=== PATIENT | female | born 1955 | race African-American/Black ===

== ENCOUNTER 2017-02-19 07:35 | Day surgery (SDC) | payer OTHER ==
[2017-02-15 15:21] VITALS: BMI 27.3
[2017-02-19 08:18] LABS: BASOPHIL 0.4 % (0-2.0); EOSINOPHIL 1.7 % (0-4.5); MCH 26.3 pg (25.7-33.7); MCHC 32.5 g/dl (32.0-36.0); MEAN CELL VOLUME 80.8 fl (80-96); MEAN PLT VOLUME 8.2 fl (7.5-11.1); NEUTROPHILS 61.7 % (42.8-82.8); PLATELET COUNT 241 K/MM3 (134-434); RDW 12.6 % (11.6-15.6); WHITE BLOOD COUNT 9.5 K/mm3 (4.0-10.0)
[2017-02-19 08:34] LABS: INR 1.23 (0.82-1.09); PROTHROMBIN TIME (PATIENT) 13.5 SEC (9.98-11.88)
[2017-02-19 08:50] LABS: ALBUMIN 3.8 g/dl (3.4-5.0); ALK PHOS 83 U/L (45-117); ANION GAP 8 (8-16); BILIRUBIN,TOTAL 0.3 mg/dL (0.2-1.0); CALCIUM 9.4 mg/dL (8.5-10.1); CO2 27 mmol/L (21-32); CREATININE 1.3 mg/dL (0.55-1.02); GLUCOSE,RANDOM 86 mg/dL (74-106); SGOT/AST 14 U/L (15-37); SGPT/ALT 16 U/L (12-78); TOT PROT 7.5 g/dl (6.4-8.2)
[2017-02-19] MEDS ORDERED: PROPOFOL 20 ML ONE ×4 (10:19)
[2017-02-19] MEDS ORDERED: MIDAZOLAM HCL 2 MG/2 ML SINGLE DOSE VIAL ONE (10:19)
[2017-02-19] MEDS ORDERED: LEVOFLOXACIN 500 MG IVPB 100 ML IVPB ONE (10:21)
[2017-02-19] MEDS ORDERED: LIDOCAINE HCL/PF 2% SDV 5ML VIAL ONE (10:21)
[2017-02-19] MEDS ORDERED: oxyCODONE HCL 5 MG TABLET PO PRN (12:44)
[2017-02-19] MEDS ORDERED: ONDANSETRON 4 MG/2 ML VIAL IVPUSH PRN (12:44)
[2017-02-19] MEDS ORDERED: PROMETHAZINE HCL 25 MG/1 ML VIAL IVPUSH PRN (12:44)
[2017-02-19] MEDS ORDERED: LACTATED RINGERS SOLUTION 1,000 ML IV SCH (12:45)
[2017-02-19 17:01] VITALS: PULSE 60
[2017-02-19 17:14] VITALS: BP 110/76; TEMP 97.8
== END 2017-02-19 17:14 | disposition home or self-care (01) ==
LOC: JASUSAT 07:35
PROVIDERS: ATTEND Radiology Diagnostic Radiology
PROC: 0T503ZZ Destruction of Right Kidney, Percutaneous Approach (ICD-10-PCS; principal; 2017-02-19)
DX: C64.1 Malignant neoplasm of right kidney, except renal pelvis (principal)
CPT/HCPCS: 36415; 50593; 80053; 85025; 85610; C2618

== ENCOUNTER 2018-06-23 07:53 | Day surgery (SDC) | payer OTHER ==
[2018-06-20 19:01] VITALS: BMI 26.5
[2018-06-23 08:20] LABS: BASO % 0.4 % (0-2.0); EOS % 1.6 % (0-4.5); HEMATOCRIT 35.2 % (32.4-45.2); HEMOGLOBIN 11.9 GM/dL (10.7-15.3); LYMPH % 31.4 % (8-40); MCH 28.1 pg (25.7-33.7); MCHC 33.9 g/dl (32.0-36.0); MEAN PLT VOLUME 7.7 fl (7.5-11.1); MONO % 7.7 % (3.8-10.2); NEUT % 58.9 % (42.8-82.8); PLATELET COUNT 255 K/MM3 (134-434); RBC 4.23 M/mm3 (3.60-5.2); RDW 13.7 % (11.6-15.6)
[2018-06-23 08:41] LABS: INR 1.07 (0.83-1.09); PROTHROMBIN TIME (PATIENT) 12.6 SEC (9.7-13.0)
[2018-06-23] MEDS ORDERED: SUCCINYLCHOLINE CHLORIDE 200 MG/10 ML VIAL ONE (09:15)
[2018-06-23] MEDS ORDERED: MIDAZOLAM HCL 2 MG/2 ML SINGLE DOSE VIAL ONE ×2 (09:15)
[2018-06-23 09:29] LABS: ALBUMIN 3.7 g/dl (3.4-5.0); ALK PHOS 97 U/L (45-117); ANION GAP 5 MMOL/L (8-16); BILIRUBIN,TOTAL 0.3 mg/dL (0.2-1); BLOOD UREA NITROGEN 16 mg/dL (7-18); CALCIUM 8.9 mg/dL (8.5-10.1); CHLORIDE 101 mmol/L (98-107); CO2 32 mmol/L (21-32); CREATININE 0.9 mg/dL (0.55-1.3); GLUCOSE,RANDOM 86 mg/dL (74-106); POTASSIUM 4.3 mmol/L (3.5-5.1); SGOT/AST 13 U/L (15-37); SGPT/ALT 12 U/L (13-61); SODIUM 138 mmol/L (136-145); TOT PROT 7.7 g/dl (6.4-8.2)
[2018-06-23] MEDS ORDERED: PROPOFOL 20 ML ONE (10:39)
[2018-06-23] MEDS ORDERED: PROPOFOL 40 ML ONE (11:02)
[2018-06-23 15:39] VITALS: TEMP 98
[2018-06-23 15:43] VITALS: BP 129/74; PULSE 62
== END 2018-06-23 16:10 | disposition home or self-care (01) ==
LOC: JRADIR 07:53
PROVIDERS: ATTEND Urology
PROC: 0T513ZZ Destruction of Left Kidney, Percutaneous Approach (ICD-10-PCS; principal; 2018-06-23)
DX: D41.02 Neoplasm of uncertain behavior of left kidney (principal)
CPT/HCPCS: 50593; C2618; 36415; 77012-TC; 80053; 85025; 85610

== ENCOUNTER 2020-03-14 10:45 | Emergency (ER) | payer OTHER ==
[2020-03-14 11:02] VITALS: BP 153/87; PULSE 71; TEMP 98.1; BMI 26.4
[2020-03-14] MEDS ORDERED: diazePAM 5 MG TABLET PO ONE (12:21)
[2020-03-14] MEDS ORDERED: KETOROLAC TROMETHAMINE 30 MG/1 ML VIAL IM ONE (12:21)
[2020-03-14] MEDS ORDERED: KETOROLAC TROMETHAMINE 30 MG/1 ML VIAL ONE (12:25)
[2020-03-14] MEDS ORDERED: diazePAM 5 MG TABLET ONE (12:25)
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
== END 2020-03-14 12:49 | disposition home or self-care (01) ==
LOC: JERFT 10:45
PROC: 3E0233Z Introduction of Anti-inflammatory into Muscle, Percutaneous Approach (ICD-10-PCS; principal; 2020-03-14)
DX: M54.42 Lumbago with sciatica, left side (principal)
CPT/HCPCS: 99284-25

== ENCOUNTER 2021-05-04 00:33 | Inpatient (IN) | payer OTHER ==
[2021-05-04 00:56] VITALS: BMI 27.1
[2021-05-04] MEDS ORDERED: FAMOTIDINE 20 MG/50 ML IVPB 20 MG/50 ML MG IVPB ONE ×3 (01:31→02:43)
[2021-05-04] MEDS ORDERED: ACETAMINOPHEN 1000 MG/100 ML VIAL IVPB ONE (01:31)
[2021-05-04] MEDS ORDERED: METOCLOPRAMIDE HCL INJECTION 10 MG/2 ML VIAL IVPUSH ONE (01:31)
[2021-05-04] MEDS ORDERED: SODIUM CHLORIDE 1,000 ML IV STA (01:31)
[2021-05-04] MEDS ORDERED: METOCLOPRAMIDE HCL INJECTION 10 MG/2 ML VIAL ONE (02:17)
[2021-05-04 02:50] LABS: HEMATOCRIT 33.6 % (32.4-45.2); HEMOGLOBIN 11.3 GM/dL (10.7-15.3); MCH 26.4 pg (25.7-33.7); MCHC 33.5 g/dl (32.0-36.0); MEAN CELL VOLUME 78.9 fl (80-96); MEAN PLT VOLUME 7.7 fl (7.5-11.1); PLATELET COUNT 302 10^3/uL (134-434); RBC 4.26 M/mm3 (3.60-5.2); RDW 15.7 % (11.6-15.6); WHITE BLOOD COUNT 9.6 K/mm3 (4.0-10.0)
[2021-05-04 02:58] LABS: EPI CELLS 4 /uL (0-25.1); HYALINE CASTS 0 /uL (0-3.1); PH,URINE 6.5 (5.0-8.0); URINE APPEARANCE CLEAR; URINE BACTERIA 29 /uL (0-1359); URINE BILIRUBIN NEGATIVE (NEGATIVE); URINE COLOR YELLOW; URINE GLUCOSE (UA) NEGATIVE (NEGATIVE); URINE KETONE NEGATIVE (NEGATIVE); URINE LEUK ESTERASE TRACE (NEGATIVE); URINE NITRITE NEGATIVE (NEGATIVE); URINE PROTEIN NEGATIVE (NEGATIVE); URINE RBC 4 /uL (0-23.9); URINE UROBILINOGEN 0.2 mg/dL (0.2-1.0); URINE WBC 4 /uL (0-25.8)
[2021-05-04 03:11] LABS: CALCIUM 9.2 mg/dL (8.5-10.1)
[2021-05-04 03:12] LABS: ALBUMIN 3.6 g/dl (3.4-5.0); BLOOD UREA NITROGEN 13.1 mg/dL (7-18)
[2021-05-04 03:15] LABS: CREATININE 0.8 mg/dL (0.55-1.3)
[2021-05-04 03:16] LABS: BILIRUBIN,TOTAL 0.3 mg/dL (0.2-1); TOT PROT 7.7 g/dl (6.4-8.2)
[2021-05-04] MEDS ORDERED: morphine CARPU-JECT 4 MG/1 ML DISP.SYRIN IVPUSH ONE (04:42)
[2021-05-04] MEDS ORDERED: morphine SULFATE 4 MG/ML VIAL ONE (05:51)
[2021-05-04] MEDS ORDERED: ACETAMINOPHEN 1000 MG/100 ML VIAL IVPB PRN (07:32)
[2021-05-04] MEDS ORDERED: ACETAMINOPHEN INJECTION 100 ML IVPB ONE (08:15)
[2021-05-04] MEDS: LACTATED RINGERS SOLUTION 1,000 ML/1,000 ML INFUS.BAG IV SCH ×2 (08:31→18:50)
[2021-05-04] MEDS ORDERED: methaDONE HCL 40 MG DISPERSABLE TABLET PO SCH (10:00)
[2021-05-04] MEDS ORDERED: HYDROCHLOROTHIAZIDE 25 MG TABLET (FP) ONE (10:49)
[2021-05-04] MEDS ORDERED: LISINOPRIL 20 MG TABLET ONE (10:50)
[2021-05-04] MEDS ORDERED: CEFTRIAXONE 1 GM/50 ML BAG ONE (10:50)
[2021-05-04] MEDS: LISINOPRIL 20 MG TABLET PO SCH (10:51)
[2021-05-04] MEDS: amLODIPine BESYLATE 10 MG TABLET (FP) PO SCH (10:51)
[2021-05-04] MEDS: HYDROCHLOROTHIAZIDE 25 MG TABLET (FP) PO SCH (10:51)
[2021-05-04] MEDS: CEFTRIAXONE 1 GM in DEXTROSE 5%-WATER - 50 ML IVPB SCH (10:51)
[2021-05-04] MEDS: CYCLOBENZAPRINE HCL 10 MG TABLET (FP) PO SCH (21:47)
[2021-05-04] MEDS: MONTELUKAST NA 10 MG TABLET PO SCH (21:47)
[2021-05-05] MEDS ORDERED: cefTRIAXone SODIUM 1 GM VIAL ONE ×2 (08:00→09:14)
[2021-05-05 08:31] LABS: BASO % 0.4 % (0-2.0); EOS % 0.7 % (0-4.5); HEMATOCRIT 35.3 % (32.4-45.2); HEMOGLOBIN 11.6 GM/dL (10.7-15.3); MCH 26.3 pg (25.7-33.7); MCHC 32.9 g/dl (32.0-36.0); MEAN PLT VOLUME 7.7 fl (7.5-11.1); MONO % 11.4 % (3.8-10.2); NEUT % 68.5 % (42.8-82.8); PLATELET COUNT 302 10^3/uL (134-434); RBC 4.42 M/mm3 (3.60-5.2); RDW 15.5 % (11.6-15.6); WHITE BLOOD COUNT 7.1 K/mm3 (4.0-10.0)
[2021-05-05 08:56] LABS: CALCIUM 9.4 mg/dL (8.5-10.1)
[2021-05-05 08:57] LABS: BLOOD UREA NITROGEN 7.8 mg/dL (7-18); MAGNESIUM 1.7 mg/dL (1.8-2.4)
[2021-05-05 09:00] LABS: CREATININE 0.8 mg/dL (0.55-1.3)
[2021-05-05] MEDS ORDERED: DEXTROSE 5%-WATER - 50 ML IVPB ONE (09:15)
[2021-05-05] MEDS: amLODIPine BESYLATE 10 MG TABLET (FP) PO SCH (09:44)
[2021-05-05] MEDS: HYDROCHLOROTHIAZIDE 25 MG TABLET (FP) PO SCH (09:44)
[2021-05-05] MEDS: CEFTRIAXONE 1 GM in DEXTROSE 5%-WATER - 50 ML IVPB SCH (09:44)
[2021-05-05] MEDS: LISINOPRIL 20 MG TABLET PO SCH (09:44)
[2021-05-05] MEDS ORDERED: methaDONE HCL 40 MG DISPERSABLE TABLET PO SCH ×3 (09:45→10:48)
[2021-05-05] MEDS: LACTATED RINGERS SOLUTION 1,000 ML/1,000 ML INFUS.BAG IV SCH ×2 (09:55→20:05)
[2021-05-05] MEDS ORDERED: methaDONE 40 MG, methaDONE 30 MG PO SCH (10:15)
[2021-05-05] MEDS ORDERED: MAGNESIUM 2GM/50ML STERILE WATER IVPB IVPB ONE (11:00)
[2021-05-05] MEDS: methaDONE HCL 40 MG DISPERSABLE TABLET PO SCH (11:28)
[2021-05-05] MEDS: CYCLOBENZAPRINE HCL 10 MG TABLET (FP) PO SCH (21:21)
[2021-05-05] MEDS: MONTELUKAST NA 10 MG TABLET PO SCH (21:21)
[2021-05-05] MEDS ORDERED: ACETAMINOPHEN 1000 MG/100 ML VIAL IVPB PRN (22:25)
[2021-05-06] MEDS: methaDONE HCL 40 MG DISPERSABLE TABLET PO SCH (05:15)
[2021-05-06] MEDS: LACTATED RINGERS SOLUTION 1,000 ML/1,000 ML INFUS.BAG IV SCH (08:02)
[2021-05-06 08:15] LABS: BASO % 0.2 % (0-2.0); EOS % 0.5 % (0-4.5); HEMATOCRIT 35.2 % (32.4-45.2); HEMOGLOBIN 11.6 GM/dL (10.7-15.3); MCH 26.2 pg (25.7-33.7); MEAN CELL VOLUME 79.4 fl (80-96); MEAN PLT VOLUME 7.7 fl (7.5-11.1); MONO % 11.2 % (3.8-10.2); NEUT % 68.1 % (42.8-82.8); PLATELET COUNT 306 10^3/uL (134-434); RBC 4.43 M/mm3 (3.60-5.2); RDW 15.3 % (11.6-15.6); WHITE BLOOD COUNT 7.8 K/mm3 (4.0-10.0)
[2021-05-06 08:32] LABS: ALBUMIN 3.1 g/dl (3.4-5.0); BLOOD UREA NITROGEN 9.1 mg/dL (7-18); CALCIUM 9.1 mg/dL (8.5-10.1)
[2021-05-06 08:35] LABS: CREATININE 0.9 mg/dL (0.55-1.3)
[2021-05-06 08:37] LABS: BILIRUBIN,TOTAL 0.6 mg/dL (0.2-1)
[2021-05-06] MEDS ORDERED: DEXTROSE 5%-WATER - 50 ML IVPB ONE (08:50)
[2021-05-06] MEDS ORDERED: cefTRIAXone SODIUM 1 GM VIAL ONE (08:50)
[2021-05-06] MEDS: CEFTRIAXONE 1 GM in DEXTROSE 5%-WATER - 50 ML IVPB SCH (09:55)
[2021-05-06] MEDS: HYDROCHLOROTHIAZIDE 25 MG TABLET (FP) PO SCH (09:56)
[2021-05-06] MEDS: ENOXAPARIN NA (PORCINE) 40 MG/0.4 ML DISP.SYRIN SQ SCH (09:56)
[2021-05-06] MEDS: LISINOPRIL 20 MG TABLET PO SCH (09:56)
[2021-05-06] MEDS: amLODIPine BESYLATE 10 MG TABLET (FP) PO SCH (09:56)
[2021-05-06] MEDS ORDERED: ACETAMINOPHEN 325 MG TABLET (FP) PO ONE (21:03)
[2021-05-06] MEDS: CYCLOBENZAPRINE HCL 10 MG TABLET (FP) PO SCH (21:30)
[2021-05-06] MEDS: metroNIDAZOLE 250 MG TABLET PO SCH (21:30)
[2021-05-06] MEDS: MONTELUKAST NA 10 MG TABLET PO SCH (21:30)
[2021-05-07 05:21] VITALS: BP 153/98; PULSE 79; TEMP 98.9
[2021-05-07] MEDS: methaDONE HCL 40 MG DISPERSABLE TABLET PO SCH (05:57)
[2021-05-07] MEDS: metroNIDAZOLE 250 MG TABLET PO SCH (05:57)
[2021-05-07 09:23] LABS: BASO % 0.3 % (0-2.0); HEMATOCRIT 34.8 % (32.4-45.2); HEMOGLOBIN 11.4 GM/dL (10.7-15.3); LYMPH % 27.7 % (8-40); MCH 26.1 pg (25.7-33.7); MCHC 32.8 g/dl (32.0-36.0); MEAN CELL VOLUME 79.7 fl (80-96); MEAN PLT VOLUME 7.9 fl (7.5-11.1); MONO % 10.9 % (3.8-10.2); NEUT % 60.1 % (42.8-82.8); PLATELET COUNT 300 10^3/uL (134-434); RBC 4.37 M/mm3 (3.60-5.2); RDW 15.6 % (11.6-15.6)
[2021-05-07 09:53] LABS: CREATININE 0.9 mg/dL (0.55-1.3)
[2021-05-07 09:56] LABS: CALCIUM 9.3 mg/dL (8.5-10.1)
[2021-05-07 09:57] LABS: BLOOD UREA NITROGEN 10.6 mg/dL (7-18)
[2021-05-07] MEDS: amLODIPine BESYLATE 10 MG TABLET (FP) PO SCH (10:30)
[2021-05-07] MEDS: LISINOPRIL 20 MG TABLET PO SCH (10:30)
[2021-05-07] MEDS: HYDROCHLOROTHIAZIDE 25 MG TABLET (FP) PO SCH (10:30)
[2021-05-07] MEDS: ENOXAPARIN NA (PORCINE) 40 MG/0.4 ML DISP.SYRIN SQ SCH (10:33)
[2021-05-07] MEDS: LACTATED RINGERS SOLUTION 1,000 ML/1,000 ML INFUS.BAG IV SCH (10:33)
== END 2021-05-07 13:18 | disposition home or self-care (01) | DRG 372 ==
LOC: JER 00:33 → JERBED 01:30 → J7W 17:10 → J6S 05-05 15:39
PROVIDERS: ADMIT Internal Medicine; ATTEND Internal Medicine
DX: A04.9 Bacterial intestinal infection, unspecified (principal); K55.9 Vascular disorder of intestine, unspecified; K62.5 Hemorrhage of anus and rectum; I10 Essential (primary) hypertension; M06.9 Rheumatoid arthritis, unspecified; K58.9 Irritable bowel syndrome, unspecified; K21.9 Gastro-esophageal reflux disease without esophagitis; M79.7 Fibromyalgia; F11.10 Opioid abuse, uncomplicated; K59.03 Drug induced constipation; T40.2X5A Adverse effect of other opioids, initial encounter; J44.9 Chronic obstructive pulmonary disease, unspecified; E78.5 Hyperlipidemia, unspecified; F17.210 Nicotine dependence, cigarettes, uncomplicated; Z85.53 Personal history of malignant neoplasm of renal pelvis; R25.2 Cramp and spasm; E11.9 Type 2 diabetes mellitus without complications; Z89.431 Acquired absence of right foot
CPT/HCPCS: 36415; 71046-TC-FY; 74177-TC; 80048; 80053; 81003; 82272; 83605; 83690; 83735; 84484; 85025; 85027; 93005; 93010; 99285-25; C9803; J0131; U0003; U0005

== ENCOUNTER 2021-12-04 07:02 | Emergency (ER) | payer OTHER ==
[2021-12-04 07:54] VITALS: BMI 28.3
[2021-12-04] MEDS ORDERED: METOCLOPRAMIDE HCL INJECTION 10 MG/2 ML VIAL IVPB ONE (09:30)
[2021-12-04] MEDS ORDERED: SODIUM CHLORIDE 1,000 ML IV STA (09:30)
[2021-12-04] MEDS ORDERED: PANTOPRAZOLE SODIUM 40 MG VIAL IVPB ONE (09:30)
[2021-12-04] MEDS ORDERED: ACETAMINOPHEN 1000 MG/100 ML BAG IVPB ONE (09:30)
[2021-12-04] MEDS ORDERED: METOCLOPRAMIDE HCL INJECTION 10 MG/2 ML VIAL ONE (09:58)
[2021-12-04] MEDS ORDERED: ACETAMINOPHEN INJECTION 100 ML IVPB ONE (09:58)
[2021-12-04] MEDS ORDERED: PANTOPRAZOLE SODIUM 40 MG/100 ML BAG IVPB ONE (09:59)
[2021-12-04 11:06] LABS: BASO % 0.4 % (0-2.0); EOS % 0.2 % (0-4.5); HEMATOCRIT 38.3 % (32.4-45.2); HEMOGLOBIN 12.7 GM/dL (10.7-15.3); LYMPH % 22.9 % (8-40); MCH 27.7 pg (25.7-33.7); MCHC 33.1 g/dl (32.0-36.0); MEAN CELL VOLUME 83.6 fl (80-96); MEAN PLT VOLUME 9.1 fl (7.5-11.1); MONO % 6.4 % (3.8-10.2); NEUT % 70.1 % (42.8-82.8); PLATELET COUNT 237 10^3/uL (134-434); RBC 4.59 M/mm3 (3.60-5.2); RDW 12.9 % (11.6-15.6); WHITE BLOOD COUNT 8.1 K/mm3 (4.0-10.0)
[2021-12-04 11:39] LABS: ALBUMIN 3.9 g/dl (3.4-5.0); BLOOD UREA NITROGEN 12.6 mg/dL (7-18); CALCIUM 9.6 mg/dL (8.5-10.1)
[2021-12-04 11:42] LABS: CREATININE 0.8 mg/dL (0.55-1.3)
[2021-12-04 11:44] LABS: BILIRUBIN,TOTAL 0.5 mg/dL (0.2-1); TOT PROT 8.6 g/dl (6.4-8.2)
[2021-12-04 12:33] LABS: URINE APPEARANCE CLEAR; URINE BILIRUBIN NEGATIVE (NEGATIVE); URINE COLOR YELLOW; URINE GLUCOSE (UA) NEGATIVE (NEGATIVE); URINE KETONE NEGATIVE (NEGATIVE); URINE LEUK ESTERASE NEGATIVE (NEGATIVE); URINE NITRITE NEGATIVE (NEGATIVE); URINE PROTEIN NEGATIVE (NEGATIVE)
[2021-12-04] MEDS ORDERED: BEBTELOVIMAB (EUA) 175 MG/2 ML VIAL IVPUSH ONE (12:49)
[2021-12-04 16:05] VITALS: BP 134/79; PULSE 58; RESP 18; TEMP 98.4
== END 2021-12-04 16:05 | disposition home or self-care (01) ==
LOC: JER 07:02 → JCOVINFU 07:02
PROC: 3E033NZ Introduction of Analgesics, Hypnotics, Sedatives into Peripheral Vein, Percutaneous Approach (ICD-10-PCS; principal; 2021-12-04)
PROC: 3E033GC Introduction of Other Therapeutic Substance into Peripheral Vein, Percutaneous Approach (ICD-10-PCS; 2021-12-04)
PROC: 3E033GC Introduction of Other Therapeutic Substance into Peripheral Vein, Percutaneous Approach (ICD-10-PCS; 2021-12-04)
PROC: 3E0337Z Introduction of Electrolytic and Water Balance Substance into Peripheral Vein, Percutaneous Approach (ICD-10-PCS; 2021-12-04)
DX: U07.1 COVID-19 (principal); K52.9 Noninfective gastroenteritis and colitis, unspecified
CPT/HCPCS: 36415; 76705-TC; 80053; 81003; 83690; 85025; 87086; 99284-25; C9803-CS; M0222; Q0222; U0003; U0005

== ENCOUNTER 2021-12-17 07:14 | Inpatient (IN) | payer OTHER ==
[2021-12-17] MEDS ORDERED: ACETAMINOPHEN 1000 MG/100 ML BAG IVPB ONE (08:16)
[2021-12-17 08:58] LABS: BASO % 0.5 % (0-2.0); HEMATOCRIT 34.8 % (32.4-45.2); HEMOGLOBIN 11.6 GM/dL (10.7-15.3); LYMPH % 10.4 % (8-40); MCH 27.5 pg (25.7-33.7); MCHC 33.2 g/dl (32.0-36.0); MEAN CELL VOLUME 82.7 fl (80-96); MEAN PLT VOLUME 7.9 fl (7.5-11.1); MONO % 3.2 % (3.8-10.2); NEUT % 85.9 % (42.8-82.8); PLATELET COUNT 326 10^3/uL (134-434); RBC 4.21 M/mm3 (3.60-5.2); RDW 13.6 % (11.6-15.6); WHITE BLOOD COUNT 12.3 K/mm3 (4.0-10.0)
[2021-12-17 09:00] LABS: PH,URINE 8.5 (5.0-8.0); URINE APPEARANCE CLEAR; URINE BILIRUBIN NEGATIVE (NEGATIVE); URINE COLOR YELLOW; URINE GLUCOSE (UA) NEGATIVE (NEGATIVE); URINE KETONE NEGATIVE (NEGATIVE); URINE LEUK ESTERASE NEGATIVE (NEGATIVE); URINE NITRITE NEGATIVE (NEGATIVE); URINE PROTEIN NEGATIVE (NEGATIVE); URINE UROBILINOGEN 0.2 mg/dL (0.2-1.0)
[2021-12-17 09:11] LABS: CHLORIDE 103 mmol/L (98-107); SODIUM 142 mmol/L (136-145)
[2021-12-17 09:13] LABS: ALBUMIN 3.6 g/dl (3.4-5.0); ANION GAP 8 MMOL/L (8-16); CALCIUM 9.8 mg/dL (8.5-10.1); CO2 32 mmol/L (21-32)
[2021-12-17 09:14] LABS: BLOOD UREA NITROGEN 9.6 mg/dL (7-18); GLUCOSE,RANDOM 99 mg/dL (74-106)
[2021-12-17 09:17] LABS: CREATININE 0.6 mg/dL (0.55-1.3); SGOT/AST 28 U/L (15-37); SGPT/ALT 25 U/L (13-61)
[2021-12-17 09:18] LABS: BILIRUBIN,TOTAL 0.3 mg/dL (0.2-1); TOT PROT 7.9 g/dl (6.4-8.2)
[2021-12-17 09:19] LABS: ALK PHOS 93 U/L (45-117)
[2021-12-17] MEDS: ASPIRIN COATED 81 MG TABLET.EC PO SCH (10:15)
[2021-12-17] MEDS ORDERED: DOCUSATE NA 100 MG/10 ML UNIT-DOSE CUPS PO ONE (11:53)
[2021-12-17] MEDS ORDERED: MAG HYDROX/AL HYDROX/SIMETH 30 ML UNIT-DOSE CUP PO ONE (11:53)
[2021-12-17 11:55] LABS: LIPASE 139 U/L (73-393)
[2021-12-17] MEDS ORDERED: MAG HYDROX/AL HYDROX/SIMETH 30 ML UNIT-DOSE CUP ONE (12:00)
[2021-12-17] MEDS ORDERED: ASPIRIN COATED 81 MG TABLET.EC ONE (12:00)
[2021-12-17] MEDS ORDERED: DOCUSATE SODIUM 100 MG CAPSULE (FP) PO ONE (12:00)
[2021-12-17] MEDS ORDERED: HYDROmorphone HCL CARPU-JECT 2 MG/1 ML DISP.SYRIN IVPUSH PRN (14:38)
[2021-12-17] MEDS ORDERED: ACETAMINOPHEN 325 MG TABLET (FP) PO PRN (14:38)
[2021-12-17] MEDS ORDERED: oxyCODONE HCL 5 MG TABLET PO PRN (14:38)
[2021-12-17] MEDS ORDERED: LACTATED RINGERS SOLUTION 1,000 ML/1,000 ML INFUS.BAG IV SCH (14:45)
[2021-12-17] MEDS ORDERED: HYDROmorphone HCl 2 MG/ML VIAL ONE ×3 (14:50→23:00)
[2021-12-17] MEDS: HYDROmorphone HCl 2 MG/ML VIAL IVPUSH PRN ×2 (18:33→23:14)
[2021-12-17] MEDS: DULoxetine HCL 30 MG CAPSULE.DR PO SCH (22:25)
[2021-12-18] MEDS ORDERED: oxyCODONE HCL 5 MG TABLET ONE (06:01)
[2021-12-18 07:26] LABS: HEMATOCRIT 36.5 % (32.4-45.2); HEMOGLOBIN 12.1 GM/dL (10.7-15.3); MCH 27.2 pg (25.7-33.7); MEAN CELL VOLUME 82.5 fl (80-96); MEAN PLT VOLUME 8.2 fl (7.5-11.1); PLATELET COUNT 347 10^3/uL (134-434); RBC 4.43 M/mm3 (3.60-5.2); RDW 13.3 % (11.6-15.6)
[2021-12-18 07:30] LABS: INR 1.16 (0.83-1.09); PROTHROMBIN TIME (PATIENT) 13.4 SEC (9.7-13.0)
[2021-12-18 07:33] LABS: ACTIVATED PTT 27.1 SECONDS (25.2-36.5)
[2021-12-18 07:44] LABS: CHLORIDE 102 mmol/L (98-107); SODIUM 139 mmol/L (136-145)
[2021-12-18 07:50] LABS: ANION GAP 8 MMOL/L (8-16); CALCIUM 9.2 mg/dL (8.5-10.1); CO2 29 mmol/L (21-32)
[2021-12-18 07:51] LABS: GLUCOSE,RANDOM 83 mg/dL (74-106)
[2021-12-18 07:52] LABS: ALBUMIN 3.5 g/dl (3.4-5.0); BLOOD UREA NITROGEN 7.3 mg/dL (7-18); CREATININE 0.6 mg/dL (0.55-1.3); SGOT/AST 36 U/L (15-37); SGPT/ALT 24 U/L (13-61)
[2021-12-18 07:53] LABS: TOT PROT 7.8 g/dl (6.4-8.2)
[2021-12-18 07:55] LABS: TRIGLYCERIDES 110 mg/dL (0-150)
[2021-12-18 07:56] LABS: CHOLESTEROL 177 mg/dL (50-200); PHOSPHOROUS 2.4 mg/dL (2.5-4.9)
[2021-12-18 07:57] LABS: LDL CHOLESTEROL (ONLY SJRH) 114 mg/dL (5-100)
[2021-12-18 07:58] LABS: ALK PHOS 88 U/L (45-117); HDL CHOLESTEROL 47 mg/dL (40-60)
[2021-12-18 08:03] LABS: BILIRUBIN,TOTAL 0.6 mg/dL (0.2-1)
[2021-12-18] MEDS ORDERED: ASPIRIN COATED 81 MG TABLET.EC ONE (09:13)
[2021-12-18] MEDS ORDERED: amLODIPine BESYLATE 5 MG TABLET (FP) ONE (09:13)
[2021-12-18] MEDS ORDERED: LISINOPRIL 20 MG TABLET ONE (09:14)
[2021-12-18] MEDS ORDERED: ENOXAPARIN NA (PORCINE) 40 MG/0.4 ML DISP.SYRIN SQ ONE (09:14)
[2021-12-18] MEDS: DULoxetine HCL 30 MG CAPSULE.DR PO SCH (09:37)
[2021-12-18] MEDS: ASPIRIN COATED 81 MG TABLET.EC PO SCH (09:37)
[2021-12-18] MEDS: ENOXAPARIN NA (PORCINE) 40 MG/0.4 ML DISP.SYRIN SQ SCH (09:38)
[2021-12-18] MEDS ORDERED: ACETAMINOPHEN 325 MG TABLET (FP) PO PRN (09:54)
[2021-12-18] MEDS ORDERED: LISINOPRIL 20 MG TABLET PO SCH (10:00)
[2021-12-18] MEDS ORDERED: methaDONE HCL 40 MG DISPERSABLE TABLET PO SCH (10:00)
[2021-12-18] MEDS ORDERED: amLODIPine BESYLATE 10 MG TABLET (FP) PO SCH ×2 (10:00)
[2021-12-18] MEDS ORDERED: PATIENT'S OWN MEDICATION (NON-FORMULARY) (Lisinopril [Zestril] 40 MG Tablet) PO SCH (10:00)
[2021-12-18] MEDS: ASPIRIN 81 MG CHEWABLE TABLETS PO SCH (10:08)
[2021-12-18] MEDS ORDERED: HYDROCHLOROTHIAZIDE 25 MG TABLET (FP) ONE (10:14)
[2021-12-18] MEDS ORDERED: FAMOTIDINE 20 MG TABLET ONE (10:14)
[2021-12-18] MEDS ORDERED: methaDONE HCL 10 MG TABLET ONE (10:14)
[2021-12-18] MEDS ORDERED: PARoxetine HCL 10 MG TABLET ONE (10:15)
[2021-12-18] MEDS: PARoxetine HCL 10 MG TABLET PO SCH (10:36)
[2021-12-18] MEDS: FAMOTIDINE 20 MG TABLET PO SCH (10:36)
[2021-12-18] MEDS: HYDROCHLOROTHIAZIDE 25 MG TABLET (FP) PO SCH (10:36)
[2021-12-18] MEDS: Methylnaltrexone Bromide 12 MG/0.6 ML KIT SQ SCH ×3 (10:37→12:03)
[2021-12-18] MEDS: PATIENT'S OWN MEDICATION (NON-FORMULARY) (Plecanatide [Trulance] 3 MG Tablet) PO SCH (10:37)
[2021-12-18] MEDS: LIPASE/PROTEASE/AMYLASE 36,000 UNIT CAPSULE PO SCH ×2 (11:51→16:34)
[2021-12-18] MEDS ORDERED: Methylnaltrexone Bromide 12 MG/0.6 ML KIT SQ ONE (14:38)
[2021-12-18] MEDS ORDERED: MAGNESIUM CITRATE 300 ML BOTTLE PO ONE (15:33)
[2021-12-18] MEDS ORDERED: MAGNESIUM CITRATE 300 ML BOTTLE ONE (16:04)
[2021-12-18] MEDS ORDERED: LORATADINE 10 MG TABLET ONE (23:17)
[2021-12-18] MEDS: MONTELUKAST NA 10 MG TABLET PO SCH (23:18)
[2021-12-19 01:12] VITALS: BMI 28.1
[2021-12-19] MEDS: HYDROCHLOROTHIAZIDE 25 MG TABLET (FP) PO SCH (09:26)
[2021-12-19] MEDS: ENOXAPARIN NA (PORCINE) 40 MG/0.4 ML DISP.SYRIN SQ SCH (09:27)
[2021-12-19] MEDS: ASPIRIN 81 MG CHEWABLE TABLETS PO SCH (09:27)
[2021-12-19] MEDS: FAMOTIDINE 20 MG TABLET PO SCH (09:27)
[2021-12-19] MEDS: LISINOPRIL 20 MG TABLET PO SCH (09:29)
[2021-12-19] MEDS: amLODIPine BESYLATE 10 MG TABLET (FP) PO SCH (09:29)
[2021-12-19] MEDS: LIPASE/PROTEASE/AMYLASE 36,000 UNIT CAPSULE PO SCH ×3 (09:54→17:05)
[2021-12-19 10:10] LABS: HEMATOCRIT 35.8 % (32.4-45.2); HEMOGLOBIN 11.9 GM/dL (10.7-15.3); MCH 27.5 pg (25.7-33.7); MCHC 33.3 g/dl (32.0-36.0); MEAN CELL VOLUME 82.6 fl (80-96); MEAN PLT VOLUME 8.6 fl (7.5-11.1); PLATELET COUNT 369 10^3/uL (134-434); RBC 4.34 M/mm3 (3.60-5.2); RDW 13.3 % (11.6-15.6); WHITE BLOOD COUNT 7.8 K/mm3 (4.0-10.0)
[2021-12-19 10:43] LABS: ALBUMIN 3.8 g/dl (3.4-5.0); BLOOD UREA NITROGEN 12.2 mg/dL (7-18); CALCIUM 9.7 mg/dL (8.5-10.1)
[2021-12-19 10:45] LABS: CREATININE 0.7 mg/dL (0.55-1.3); PHOSPHOROUS 3.1 mg/dL (2.5-4.9)
[2021-12-19 10:48] LABS: BILIRUBIN,TOTAL 0.7 mg/dL (0.2-1); TOT PROT 8.2 g/dl (6.4-8.2)
[2021-12-19] MEDS: PARoxetine HCL 10 MG TABLET PO SCH (12:05)
[2021-12-19] MEDS: MAG HYDROX/AL HYDROX/SIMETH 30 ML UNIT-DOSE CUP PO PRN (12:14)
[2021-12-19] MEDS ORDERED: BISACODYL 5 MG TABLET.DR (FP) PO ONE (12:41)
[2021-12-19] MEDS: PATIENT'S OWN MEDICATION (NON-FORMULARY) (Plecanatide [Trulance] 3 MG Tablet) PO SCH (16:18)
[2021-12-19] MEDS: ONDANSETRON *ODT* 4 MG TABLET SL PRN (18:53)
[2021-12-19] MEDS: MONTELUKAST NA 10 MG TABLET PO SCH (21:17)
[2021-12-20] MEDS: metroNIDAZOLE 500 MG TABLET PO ONE ×2 (03:56→05:08)
[2021-12-20] MEDS ORDERED: metroNIDAZOLE 500 MG TABLET PO ONE (05:30)
[2021-12-20 08:24] LABS: HEMATOCRIT 35.2 % (32.4-45.2); HEMOGLOBIN 11.7 GM/dL (10.7-15.3); MCH 27.5 pg (25.7-33.7); MCHC 33.1 g/dl (32.0-36.0); PLATELET COUNT 379 10^3/uL (134-434); RBC 4.24 M/mm3 (3.60-5.2); RDW 13.3 % (11.6-15.6); WHITE BLOOD COUNT 7.1 K/mm3 (4.0-10.0)
[2021-12-20] MEDS: LIPASE/PROTEASE/AMYLASE 36,000 UNIT CAPSULE PO SCH ×3 (08:56→17:09)
[2021-12-20 09:16] LABS: BLOOD UREA NITROGEN 11.6 mg/dL (7-18)
[2021-12-20 09:22] LABS: CALCIUM 9.6 mg/dL (8.5-10.1)
[2021-12-20 09:24] LABS: CREATININE 0.8 mg/dL (0.55-1.3)
[2021-12-20] MEDS: ENOXAPARIN NA (PORCINE) 40 MG/0.4 ML DISP.SYRIN SQ SCH (09:53)
[2021-12-20] MEDS: LISINOPRIL 20 MG TABLET PO SCH (09:54)
[2021-12-20] MEDS: HYDROCHLOROTHIAZIDE 25 MG TABLET (FP) PO SCH (09:55)
[2021-12-20] MEDS: PARoxetine HCL 10 MG TABLET PO SCH (09:55)
[2021-12-20] MEDS: ASPIRIN 81 MG CHEWABLE TABLETS PO SCH (09:55)
[2021-12-20] MEDS: amLODIPine BESYLATE 10 MG TABLET (FP) PO SCH (09:55)
[2021-12-20] MEDS: MAG HYDROX/AL HYDROX/SIMETH 30 ML UNIT-DOSE CUP PO PRN (09:58)
[2021-12-20] MEDS: FAMOTIDINE 20 MG TABLET PO SCH (10:04)
[2021-12-20] MEDS: metroNIDAZOLE 500 MG TABLET PO SCH ×3 (10:40→21:21)
[2021-12-20] MEDS: POLYETHYLENE GLYCOL (HEALTHYLAX) 3350 17 GM PACKET PO SCH ×2 (12:18→21:23)
[2021-12-20] MEDS: BISACODYL 5 MG TABLET.DR (FP) PO SCH ×2 (12:19→21:21)
[2021-12-20] MEDS: ONDANSETRON *ODT* 4 MG TABLET SL PRN (16:12)
[2021-12-20] MEDS: MONTELUKAST NA 10 MG TABLET PO SCH (21:21)
[2021-12-21] MEDS: metroNIDAZOLE 500 MG TABLET PO SCH ×3 (05:50→21:17)
[2021-12-21] MEDS: LIPASE/PROTEASE/AMYLASE 36,000 UNIT CAPSULE PO SCH ×4 (08:41→18:49)
[2021-12-21] MEDS ORDERED: MAGNESIUM CITRATE 300 ML BOTTLE PO ONE (10:00)
[2021-12-21] MEDS: ASPIRIN 81 MG CHEWABLE TABLETS PO SCH (10:44)
[2021-12-21] MEDS: ENOXAPARIN NA (PORCINE) 40 MG/0.4 ML DISP.SYRIN SQ SCH ×2 (10:44→11:02)
[2021-12-21] MEDS: HYDROCHLOROTHIAZIDE 25 MG TABLET (FP) PO SCH (10:44)
[2021-12-21] MEDS: LISINOPRIL 20 MG TABLET PO SCH (10:44)
[2021-12-21] MEDS: BISACODYL 5 MG TABLET.DR (FP) PO SCH ×2 (10:44→21:17)
[2021-12-21] MEDS: FAMOTIDINE 20 MG TABLET PO SCH (10:44)
[2021-12-21] MEDS: amLODIPine BESYLATE 10 MG TABLET (FP) PO SCH (10:44)
[2021-12-21] MEDS: POLYETHYLENE GLYCOL (HEALTHYLAX) 3350 17 GM PACKET PO SCH ×2 (10:44→21:17)
[2021-12-21] MEDS: PARoxetine HCL 10 MG TABLET PO SCH (10:45)
[2021-12-21] MEDS: ONDANSETRON *ODT* 4 MG TABLET SL PRN (10:47)
[2021-12-21] MEDS ORDERED: HYDROmorphone HCl 2 MG/ML VIAL IVPUSH ONE (16:37)
[2021-12-21] MEDS: SODIUM PHOSPHATE/NA BIPHOS 133 ML ENEMA RC SCH ×2 (18:53→22:51)
[2021-12-21] MEDS: MONTELUKAST NA 10 MG TABLET PO SCH (21:19)
[2021-12-21] MEDS: MAG HYDROX/AL HYDROX/SIMETH 30 ML UNIT-DOSE CUP PO PRN (21:30)
[2021-12-22] MEDS: metroNIDAZOLE 500 MG TABLET PO SCH (06:26)
[2021-12-22 07:09] VITALS: BP 122/72; PULSE 66; RESP 18
[2021-12-22] MEDS: ONDANSETRON *ODT* 4 MG TABLET SL PRN (08:37)
[2021-12-22] MEDS: LIPASE/PROTEASE/AMYLASE 36,000 UNIT CAPSULE PO SCH (08:58)
[2021-12-22] MEDS: FAMOTIDINE 20 MG TABLET PO SCH (09:00)
[2021-12-22] MEDS: LISINOPRIL 20 MG TABLET PO SCH (09:00)
[2021-12-22] MEDS: ASPIRIN 81 MG CHEWABLE TABLETS PO SCH (09:00)
[2021-12-22] MEDS: amLODIPine BESYLATE 10 MG TABLET (FP) PO SCH (09:00)
[2021-12-22] MEDS: PARoxetine HCL 10 MG TABLET PO SCH (09:01)
[2021-12-22] MEDS: HYDROCHLOROTHIAZIDE 25 MG TABLET (FP) PO SCH (09:02)
[2021-12-22] MEDS: BISACODYL 5 MG TABLET.DR (FP) PO SCH (09:04)
[2021-12-22] MEDS: POLYETHYLENE GLYCOL (HEALTHYLAX) 3350 17 GM PACKET PO SCH (09:04)
[2021-12-22] MEDS: ENOXAPARIN NA (PORCINE) 40 MG/0.4 ML DISP.SYRIN SQ SCH (09:04)
[2021-12-22 12:12] VITALS: TEMP 98.1
== END 2021-12-22 13:54 | disposition home or self-care (01) | DRG 391 ==
LOC: JER 07:14 → JERBED 11:56 → OBSVTOIN 14:38 → J4S 12-18 23:34
PROVIDERS: ADMIT Internal Medicine; ATTEND Internal Medicine
DX: K52.9 Noninfective gastroenteritis and colitis, unspecified (principal); I21.A1 Myocardial infarction type 2; U07.1 COVID-19; F11.20 Opioid dependence, uncomplicated; I10 Essential (primary) hypertension; E78.5 Hyperlipidemia, unspecified; E11.9 Type 2 diabetes mellitus without complications; M06.9 Rheumatoid arthritis, unspecified; K86.89 Other specified diseases of pancreas; K59.00 Constipation, unspecified; F32.A Depression, unspecified; N28.1 Cyst of kidney, acquired; E86.0 Dehydration
CPT/HCPCS: 36415; 74177-TC; 80048; 80053; 80061; 81003; 82272; 82962; 83036; 83605; 83690; 83735; 84100; 84484; 85025; 85027; 85610; 85730; 87324; 87449; 93005; 93010; 93306-TC; 99285-25; C9803-CS; G0378; Q0162; Q9967; U0003; U0005

== ENCOUNTER 2022-05-24 01:19 | Observation (INO) | payer OTHER ==
[2022-05-24 03:23] LABS: PH,URINE 8.5 (5.0-8.0); URINE APPEARANCE CLEAR; URINE BILIRUBIN NEGATIVE (NEGATIVE); URINE COLOR YELLOW; URINE GLUCOSE (UA) NEGATIVE (NEGATIVE); URINE KETONE NEGATIVE (NEGATIVE); URINE LEUK ESTERASE NEGATIVE (NEGATIVE); URINE NITRITE NEGATIVE (NEGATIVE); URINE PROTEIN NEGATIVE (NEGATIVE); URINE UROBILINOGEN 0.2 mg/dL (0.2-1.0)
[2022-05-24 03:26] LABS: BASO % 0.3 % (0-2.0); EOS % 0.4 % (0-4.5); HEMOGLOBIN 12.5 GM/dL (10.7-15.3); LYMPH % 19.3 % (8-40); MCH 26.7 pg (25.7-33.7); MCHC 32.1 g/dl (32.0-36.0); MEAN PLT VOLUME 8.6 fl (7.5-11.1); MONO % 7.5 % (3.8-10.2); NEUT % 72.5 % (42.8-82.8); PLATELET COUNT 171 10^3/uL (134-434); RDW 12.7 % (11.6-15.6); WHITE BLOOD COUNT 8.6 K/mm3 (4.0-10.0)
[2022-05-24 03:29] LABS: INR 1.02 (0.83-1.09); PROTHROMBIN TIME (PATIENT) 11.7 SEC (9.7-13.0)
[2022-05-24 03:32] LABS: ACTIVATED PTT 25.3 SECONDS (25.2-36.5)
[2022-05-24 03:40] LABS: CHLORIDE 100 mmol/L (98-107); SODIUM 139 mmol/L (136-145)
[2022-05-24 03:42] LABS: GLUCOSE,RANDOM 165 mg/dL (74-106); LIPASE 220 U/L (73-393)
[2022-05-24 03:43] LABS: ALBUMIN 4.1 g/dl (3.4-5.0); ANION GAP 6 MMOL/L (8-16); BLOOD UREA NITROGEN 12.5 mg/dL (7-18); CO2 33 mmol/L (21-32)
[2022-05-24 03:45] LABS: SGPT/ALT 25 U/L (13-61)
[2022-05-24 03:46] LABS: CREATININE 0.8 mg/dL (0.55-1.3); SGOT/AST 29 U/L (15-37)
[2022-05-24 03:47] LABS: BILIRUBIN,TOTAL 0.4 mg/dL (0.2-1); TOT PROT 7.6 g/dl (6.4-8.2)
[2022-05-24 03:48] LABS: ALK PHOS 59 U/L (45-117)
[2022-05-24] MEDS ORDERED: MAG HYDROX/AL HYDROX/SIMETH 30 ML UNIT-DOSE CUP PO ONE (04:13)
[2022-05-24] MEDS ORDERED: FAMOTIDINE 20 MG/50 ML IVPB 20 MG/50 ML MG IVPB ONE ×2 (04:13→04:17)
[2022-05-24] MEDS ORDERED: MAG HYDROX/AL HYDROX/SIMETH 30 ML UNIT-DOSE CUP ONE (04:17)
[2022-05-24] MEDS ORDERED: ACETAMINOPHEN 1000 MG/100 ML BAG IVPB ONE (05:40)
[2022-05-24] MEDS ORDERED: traMADol HCL 50 MG TABLET PO PRN (07:58)
[2022-05-24] MEDS ORDERED: traMADol HCL 50 MG TABLET ONE (09:22)
[2022-05-24] MEDS ORDERED: PANTOPRAZOLE SODIUM 40 MG/100 ML BAG IVPB ONE (10:02)
[2022-05-24] MEDS ORDERED: ENOXAPARIN NA (PORCINE) 40 MG/0.4 ML DISP.SYRIN SQ ONE (10:02)
[2022-05-24] MEDS: ENOXAPARIN NA (PORCINE) 40 MG/0.4 ML DISP.SYRIN SQ SCH (10:11)
[2022-05-24] MEDS: PANTOPRAZOLE SODIUM 40 MG VIAL IVPUSH SCH ×2 (10:11→22:28)
[2022-05-24] MEDS ORDERED: ACETAMINOPHEN 1000 MG/100 ML BAG IVPB PRN (11:00)
[2022-05-24] MEDS: SODIUM CHLORIDE 1,000 ML IV SCH (11:17)
[2022-05-24 11:59] LABS: BASO % 0.3 % (0-2.0); EOS % 0.4 % (0-4.5); HEMATOCRIT 39.9 % (32.4-45.2); LYMPH % 26.5 % (8-40); MCH 26.9 pg (25.7-33.7); MCHC 32.6 g/dl (32.0-36.0); MEAN CELL VOLUME 82.4 fl (80-96); MEAN PLT VOLUME 9.2 fl (7.5-11.1); MONO % 8.2 % (3.8-10.2); NEUT % 64.6 % (42.8-82.8); PLATELET COUNT 188 10^3/uL (134-434); RBC 4.85 M/mm3 (3.60-5.2); RDW 12.6 % (11.6-15.6)
[2022-05-24 12:21] LABS: CALCIUM 9.3 mg/dL (8.5-10.1)
[2022-05-24 12:22] LABS: ALBUMIN 4.1 g/dl (3.4-5.0); BLOOD UREA NITROGEN 8.7 mg/dL (7-18)
[2022-05-24 12:25] LABS: CREATININE 0.7 mg/dL (0.55-1.3)
[2022-05-24 12:26] LABS: TOT PROT 7.6 g/dl (6.4-8.2)
[2022-05-24 12:27] LABS: BILIRUBIN,TOTAL 0.7 mg/dL (0.2-1)
[2022-05-24] MEDS ORDERED: METOCLOPRAMIDE HCL INJECTION 10 MG/2 ML VIAL ONE ×2 (14:15→22:15)
[2022-05-24] MEDS: METOCLOPRAMIDE HCL INJECTION 10 MG/2 ML VIAL IVPUSH SCH ×2 (14:32→22:28)
[2022-05-24] MEDS ORDERED: ACETAMINOPHEN INJECTION 100 ML IVPB ONE (15:26)
[2022-05-24] MEDS ORDERED: PANTOPRAZOLE SODIUM 40 MG VIAL ONE (22:15)
[2022-05-25] MEDS ORDERED: methaDONE HCL 10 MG TABLET PO ONE ×2 (01:36→21:05)
[2022-05-25] MEDS ORDERED: methaDONE HCL 10 MG TABLET ONE (01:53)
[2022-05-25] MEDS ORDERED: methaDONE HCL 40 MG DISPERSABLE TABLET ONE (01:53)
[2022-05-25] MEDS: METOCLOPRAMIDE HCL INJECTION 10 MG/2 ML VIAL IVPUSH SCH ×3 (08:16→21:10)
[2022-05-25 08:48] LABS: BASO % 0.3 % (0-2.0); EOS % 0.4 % (0-4.5); HEMATOCRIT 39.3 % (32.4-45.2); HEMOGLOBIN 13.1 GM/dL (10.7-15.3); LYMPH % 25.1 % (8-40); MCH 27.5 pg (25.7-33.7); MCHC 33.3 g/dl (32.0-36.0); MEAN CELL VOLUME 82.6 fl (80-96); MEAN PLT VOLUME 8.9 fl (7.5-11.1); MONO % 6.6 % (3.8-10.2); NEUT % 67.6 % (42.8-82.8); PLATELET COUNT 189 10^3/uL (134-434); RBC 4.76 M/mm3 (3.60-5.2); RDW 12.7 % (11.6-15.6); WHITE BLOOD COUNT 9.2 K/mm3 (4.0-10.0)
[2022-05-25 09:16] LABS: BLOOD UREA NITROGEN 10.9 mg/dL (7-18); CALCIUM 9.2 mg/dL (8.5-10.1)
[2022-05-25 09:17] LABS: ALBUMIN 4.2 g/dl (3.4-5.0)
[2022-05-25 09:20] LABS: CREATININE 0.8 mg/dL (0.55-1.3)
[2022-05-25 09:21] LABS: BILIRUBIN,TOTAL 0.7 mg/dL (0.2-1); TOT PROT 7.7 g/dl (6.4-8.2)
[2022-05-25] MEDS ORDERED: PANTOPRAZOLE 40 MG TABLET PO ONE (09:29)
[2022-05-25] MEDS ORDERED: ENOXAPARIN NA (PORCINE) 40 MG/0.4 ML DISP.SYRIN SQ ONE (09:29)
[2022-05-25] MEDS ORDERED: PANTOPRAZOLE SODIUM 40 MG VIAL ONE (09:30)
[2022-05-25] MEDS: PANTOPRAZOLE SODIUM 40 MG VIAL IVPUSH SCH ×2 (09:36→21:10)
[2022-05-25] MEDS: ENOXAPARIN NA (PORCINE) 40 MG/0.4 ML DISP.SYRIN SQ SCH (09:36)
[2022-05-25] MEDS ORDERED: POLYETHYLENE GLYCOL (HEALTHYLAX) 3350 17 GM PACKET PO SCH (10:00)
[2022-05-25] MEDS ORDERED: SENNOSIDES 8.6MG TABLET (FP) PO SCH (10:00)
[2022-05-25] MEDS: SODIUM CHLORIDE 1,000 ML IV SCH (13:00)
[2022-05-25] MEDS ORDERED: DOCUSATE SODIUM 100 MG CAPSULE (FP) PO SCH (14:00)
[2022-05-25] MEDS ORDERED: POLYETHYLENE GLYCOL (HEALTHYLAX) 3350 17 GM PACKET ONE (14:12)
[2022-05-25] MEDS ORDERED: SENNOSIDES 8.6MG TABLET (FP) PO ONE (14:12)
[2022-05-25] MEDS ORDERED: METOCLOPRAMIDE HCL INJECTION 10 MG/2 ML VIAL ONE (14:12)
[2022-05-25] MEDS ORDERED: DOCUSATE SODIUM 100 MG CAPSULE (FP) PO ONE (14:24)
[2022-05-25] MEDS ORDERED: SODIUM CHLORIDE 1,000 ML IV SCH (15:38)
[2022-05-25 16:17] VITALS: BMI 27.4
[2022-05-25] MEDS: POLYETHYLENE GLYCOL (HEALTHYLAX) 3350 17 GM PACKET PO SCH (21:12)
[2022-05-25] MEDS: SENNOSIDES 8.6MG TABLET (FP) PO SCH (21:12)
[2022-05-25] MEDS: DOCUSATE SODIUM 100 MG CAPSULE (FP) PO SCH (21:13)
[2022-05-26] MEDS: METOCLOPRAMIDE HCL INJECTION 10 MG/2 ML VIAL IVPUSH SCH ×3 (05:39→20:05)
[2022-05-26] MEDS: DOCUSATE SODIUM 100 MG CAPSULE (FP) PO SCH ×4 (05:40→21:28)
[2022-05-26] MEDS ORDERED: amLODIPine BESYLATE 10 MG TABLET (FP) PO ONE (05:58)
[2022-05-26] MEDS ORDERED: SIMETHICONE 80 MG TAB.CHEW (FP) PO PRN (06:00)
[2022-05-26] MEDS ORDERED: methaDONE HCL 10 MG TABLET PO SCH (09:45)
[2022-05-26] MEDS: POLYETHYLENE GLYCOL (HEALTHYLAX) 3350 17 GM PACKET PO SCH ×2 (10:24→21:28)
[2022-05-26] MEDS: ENOXAPARIN NA (PORCINE) 40 MG/0.4 ML DISP.SYRIN SQ SCH (10:24)
[2022-05-26] MEDS: PANTOPRAZOLE SODIUM 40 MG VIAL IVPUSH SCH ×2 (10:26→21:28)
[2022-05-26] MEDS: SENNOSIDES 8.6MG TABLET (FP) PO SCH ×2 (10:26→21:28)
[2022-05-26] MEDS: HYDROCHLOROTHIAZIDE 25 MG TABLET (FP) PO SCH (11:28)
[2022-05-26] MEDS: LISINOPRIL 20 MG TABLET PO SCH (11:28)
[2022-05-26] MEDS ORDERED: ACETAMINOPHEN 650 MG/20.3 ML ORAL SOLUTION (CUPS) PO PRN (15:09)
[2022-05-26 16:42] VITALS: RESP 18
[2022-05-27] MEDS: ACETAMINOPHEN 325 MG TABLET (FP) PO PRN ×2 (02:40→10:10)
[2022-05-27] MEDS: METOCLOPRAMIDE HCL INJECTION 10 MG/2 ML VIAL IVPUSH SCH ×3 (04:02→20:48)
[2022-05-27] MEDS: DOCUSATE SODIUM 100 MG CAPSULE (FP) PO SCH ×3 (06:25→21:52)
[2022-05-27] MEDS: LISINOPRIL 20 MG TABLET PO SCH (10:10)
[2022-05-27] MEDS: POLYETHYLENE GLYCOL (HEALTHYLAX) 3350 17 GM PACKET PO SCH ×2 (10:10→21:52)
[2022-05-27] MEDS: HYDROCHLOROTHIAZIDE 25 MG TABLET (FP) PO SCH (10:10)
[2022-05-27] MEDS: PANTOPRAZOLE SODIUM 40 MG VIAL IVPUSH SCH ×2 (10:10→21:52)
[2022-05-27] MEDS: ENOXAPARIN NA (PORCINE) 40 MG/0.4 ML DISP.SYRIN SQ SCH (10:10)
[2022-05-27] MEDS: SENNOSIDES 8.6MG TABLET (FP) PO SCH ×2 (10:10→21:52)
[2022-05-27] MEDS: amLODIPine BESYLATE 10 MG TABLET (FP) PO SCH (10:10)
[2022-05-27] MEDS ORDERED: ACETAMINOPHEN 1000 MG/100 ML BAG IVPB ONE (11:04)
[2022-05-27] MEDS: ACETAMINOPHEN 1000 MG/100 ML BAG IVPB ONE (21:50)
[2022-05-28] MEDS: ACETAMINOPHEN 1000 MG/100 ML BAG IVPB ONE (00:37)
[2022-05-28] MEDS ORDERED: CELECOXIB 100 MG CAPSULE PO ONE (02:08)
[2022-05-28] MEDS: DOCUSATE SODIUM 100 MG CAPSULE (FP) PO SCH ×2 (05:49→15:25)
[2022-05-28] MEDS: METOCLOPRAMIDE HCL INJECTION 10 MG/2 ML VIAL IVPUSH SCH ×2 (05:50→12:29)
[2022-05-28 10:27] LABS: HEMATOCRIT 40.6 % (32.4-45.2); HEMOGLOBIN 13.6 GM/dL (10.7-15.3); MCH 27.4 pg (25.7-33.7); MCHC 33.4 g/dl (32.0-36.0); MEAN CELL VOLUME 82.1 fl (80-96); MEAN PLT VOLUME 8.2 fl (7.5-11.1); PLATELET COUNT 200 10^3/uL (134-434); RBC 4.95 M/mm3 (3.60-5.2); RDW 12.3 % (11.6-15.6)
[2022-05-28] MEDS: HYDROCHLOROTHIAZIDE 25 MG TABLET (FP) PO SCH (10:35)
[2022-05-28] MEDS: PANTOPRAZOLE SODIUM 40 MG VIAL IVPUSH SCH (10:35)
[2022-05-28] MEDS: SENNOSIDES 8.6MG TABLET (FP) PO SCH (10:35)
[2022-05-28] MEDS: POLYETHYLENE GLYCOL (HEALTHYLAX) 3350 17 GM PACKET PO SCH (10:35)
[2022-05-28] MEDS: amLODIPine BESYLATE 10 MG TABLET (FP) PO SCH (10:35)
[2022-05-28] MEDS: LISINOPRIL 20 MG TABLET PO SCH (10:35)
[2022-05-28] MEDS: ENOXAPARIN NA (PORCINE) 40 MG/0.4 ML DISP.SYRIN SQ SCH (10:36)
[2022-05-28 10:44] VITALS: TEMP 97.7
[2022-05-28 11:13] LABS: CALCIUM 9.4 mg/dL (8.5-10.1)
[2022-05-28 11:17] LABS: CREATININE 0.9 mg/dL (0.55-1.3)
[2022-05-28] MEDS: ACETAMINOPHEN 325 MG TABLET (FP) PO PRN (12:11)
[2022-05-28] MEDS ORDERED: SODIUM CHLORIDE NASAL SPRAY 44 ML BOTTLE NS PRN (13:59)
[2022-05-28 14:48] VITALS: BP 149/96; PULSE 62
== END 2022-05-28 15:28 | disposition home or self-care (01) ==
LOC: JER 01:19 → JERBED 04:00 → J5S 05-25 15:35
PROVIDERS: ADMIT Internal Medicine; ATTEND Internal Medicine
PROC: 3E033NZ Introduction of Analgesics, Hypnotics, Sedatives into Peripheral Vein, Percutaneous Approach (ICD-10-PCS; principal; 2022-05-24)
PROC: 3E023GC Introduction of Other Therapeutic Substance into Muscle, Percutaneous Approach (ICD-10-PCS; 2022-05-24)
PROC: 3E033GC Introduction of Other Therapeutic Substance into Peripheral Vein, Percutaneous Approach (ICD-10-PCS; 2022-05-24)
PROC: 3E03329 Introduction of Other Anti-infective into Peripheral Vein, Percutaneous Approach (ICD-10-PCS; 2022-05-24)
DX: K58.9 Irritable bowel syndrome, unspecified (principal); E78.5 Hyperlipidemia, unspecified; R77.8 Other specified abnormalities of plasma proteins; M06.9 Rheumatoid arthritis, unspecified; F15.10 Other stimulant abuse, uncomplicated; R10.13 Epigastric pain; I10 Essential (primary) hypertension; F11.20 Opioid dependence, uncomplicated; Z88.0 Allergy status to penicillin; Z88.2 Allergy status to sulfonamides
CPT/HCPCS: 0241U-QW; 36415; 71045-TC-FY; 74019-TC-FY; 74176-TC; 80048; 80053; 81003; 83605; 83690; 83735; 84100; 84484; 85025; 85027; 85610; 85730; 93005; 93010; 96365; 96366; 96367; 96372; 96375; 96376; 99285-25; G0378

== ENCOUNTER 2022-06-30 23:02 | Emergency (ER) | payer OTHER ==
[2022-06-30 23:11] VITALS: RESP 16; TEMP 98.1; BMI 29.0
[2022-06-30] MEDS ORDERED: ACETAMINOPHEN 1000 MG/100 ML BAG IVPB ONE (23:38)
[2022-06-30] MEDS ORDERED: ONDANSETRON 4 MG/2 ML VIAL IVPUSH ONE (23:43)
[2022-06-30] MEDS ORDERED: SODIUM CHLORIDE 0.9% 500 ML INFUS.BAG IV ONE (23:43)
[2022-06-30] MEDS ORDERED: ONDANSETRON 4 MG/2 ML VIAL ONE (23:47)
[2022-06-30] MEDS ORDERED: ACETAMINOPHEN INJECTION 100 ML IVPB ONE (23:47)
[2022-07-01 00:58] LABS: BASO % 0.3 % (0-2.0); EOS % 0.3 % (0-4.5); HEMATOCRIT 37.8 % (32.4-45.2); HEMOGLOBIN 12.5 GM/dL (10.7-15.3); LYMPH % 10.8 % (8-40); MCH 27.6 pg (25.7-33.7); MEAN CELL VOLUME 83.5 fl (80-96); MEAN PLT VOLUME 9.3 fl (7.5-11.1); MONO % 6.2 % (3.8-10.2); NEUT % 82.4 % (42.8-82.8); PLATELET COUNT 162 10^3/uL (134-434); RBC 4.53 M/mm3 (3.60-5.2); RDW 13.2 % (11.6-15.6); WHITE BLOOD COUNT 11.3 K/mm3 (4.0-10.0)
[2022-07-01 02:07] LABS: BLOOD UREA NITROGEN 21.5 mg/dL (7-18); CALCIUM 9.7 mg/dL (8.5-10.1)
[2022-07-01 02:08] LABS: ALBUMIN 4.2 g/dl (3.4-5.0)
[2022-07-01 02:11] LABS: CREATININE 0.8 mg/dL (0.55-1.3)
[2022-07-01 02:12] LABS: BILIRUBIN,TOTAL 0.5 mg/dL (0.2-1); TOT PROT 7.6 g/dl (6.4-8.2)
[2022-07-01 02:50] LABS: PH,URINE 7.5 (5.0-8.0); URINE APPEARANCE CLEAR; URINE BILIRUBIN NEGATIVE (NEGATIVE); URINE COLOR YELLOW; URINE GLUCOSE (UA) NEGATIVE (NEGATIVE); URINE KETONE TRACE (NEGATIVE); URINE LEUK ESTERASE NEGATIVE (NEGATIVE); URINE NITRITE NEGATIVE (NEGATIVE); URINE PROTEIN NEGATIVE (NEGATIVE); URINE UROBILINOGEN 0.2 mg/dL (0.2-1.0)
[2022-07-01] MEDS ORDERED: LORazepam 2 MG/ML SDV VIAL IVPUSH ONE (03:18)
[2022-07-01 06:07] VITALS: BP 104/73; PULSE 81
== END 2022-07-01 10:05 | disposition home or self-care (01) ==
LOC: JER 23:02
PROC: 3E033GC Introduction of Other Therapeutic Substance into Peripheral Vein, Percutaneous Approach (ICD-10-PCS; principal; 2022-06-30)
DX: R10.84 Generalized abdominal pain (principal)
CPT/HCPCS: 36415; 74177-TC; 80053; 81003; 83605; 83690; 85025; 87086; 93005; 93010; 99285-25

== ENCOUNTER 2022-10-22 20:22 | Inpatient (IN) | payer OTHER ==
[2022-10-22 20:40] VITALS: BMI 24.0
[2022-10-22] MEDS ORDERED: ONDANSETRON 4 MG/2 ML VIAL IVPUSH ONE (20:42)
[2022-10-22] MEDS ORDERED: morphine CARPU-JECT 4 MG/1 ML DISP.SYRIN IVPUSH ONE (20:42)
[2022-10-22] MEDS ORDERED: SODIUM CHLORIDE 0.9% 500 ML INFUS.BAG IV ONE (20:44)
[2022-10-22] MEDS ORDERED: KETOROLAC TROMETHAMINE 15 MG/ML VIAL IVPUSH ONE (20:49)
[2022-10-22] MEDS ORDERED: KETOROLAC TROMETHAMINE 15 MG/ML VIAL ONE (21:18)
[2022-10-22] MEDS ORDERED: ONDANSETRON 4 MG/2 ML VIAL ONE (21:18)
[2022-10-22] MEDS ORDERED: FAMOTIDINE 20 MG/50 ML IVPB 20 MG/50 ML MG IVPB ONE ×2 (21:59→22:31)
[2022-10-22] MEDS ORDERED: MAG HYDROX/AL HYDROX/SIMETH 30 ML UNIT-DOSE CUP PO ONE (21:59)
[2022-10-22 22:00] LABS: BASO % 0.6 % (0-2.0); EOS % 0.5 % (0-4.5); HEMATOCRIT 40.6 % (32.4-45.2); HEMOGLOBIN 13.2 GM/dL (10.7-15.3); LYMPH % 17.4 % (8-40); MCH 27.2 pg (25.7-33.7); MCHC 32.4 g/dl (32.0-36.0); MEAN CELL VOLUME 83.8 fl (80-96); MEAN PLT VOLUME 8.8 fl (7.5-11.1); MONO % 6.6 % (3.8-10.2); NEUT % 74.9 % (42.8-82.8); PLATELET COUNT 246 10^3/uL (134-434); RBC 4.85 M/mm3 (3.60-5.2); RDW 13.5 % (11.6-15.6); WHITE BLOOD COUNT 9.9 K/mm3 (4.0-10.0)
[2022-10-22 22:08] LABS: INR 1.05 (0.83-1.09); PROTHROMBIN TIME (PATIENT) 12.2 SEC (9.7-13.0)
[2022-10-22 22:11] LABS: ACTIVATED PTT 27.5 SECONDS (25.2-36.5)
[2022-10-22 22:28] LABS: POTASSIUM 3.7 mmol/L (3.5-5.1)
[2022-10-22 22:30] LABS: ALBUMIN 4.2 g/dl (3.4-5.0); BLOOD UREA NITROGEN 17.5 mg/dL (7-18); MAGNESIUM 1.8 mg/dL (1.8-2.4)
[2022-10-22] MEDS ORDERED: MAG HYDROX/AL HYDROX/SIMETH 30 ML UNIT-DOSE CUP ONE (22:32)
[2022-10-22 22:35] LABS: BILIRUBIN,TOTAL 0.3 mg/dL (0.2-1); TOT PROT 8.4 g/dl (6.4-8.2)
[2022-10-22 22:54] LABS: PH,URINE 8.5 (5.0-8.0); URINE APPEARANCE CLEAR; URINE BILIRUBIN NEGATIVE (NEGATIVE); URINE COLOR YELLOW; URINE GLUCOSE (UA) NEGATIVE (NEGATIVE); URINE KETONE NEGATIVE (NEGATIVE); URINE LEUK ESTERASE NEGATIVE (NEGATIVE); URINE NITRITE NEGATIVE (NEGATIVE); URINE PROTEIN NEGATIVE (NEGATIVE); URINE UROBILINOGEN 0.2 mg/dL (0.2-1.0)
[2022-10-22 23:05] LABS: LACTIC ACID 2.6 mmol/L (0.4-2.0)
[2022-10-22] MEDS ORDERED: LORazepam 2 MG/ML SDV VIAL IVPUSH ONE (23:35)
[2022-10-22] MEDS ORDERED: hydrOXYzine HCL 100 MG/2 ML VIAL IM ONE (23:55)
[2022-10-22] MEDS ORDERED: hydrOXYzine HCL 50 MG/ML VIAL IM ONE (23:59)
[2022-10-23] MEDS ORDERED: ASPIRIN 81 MG CHEWABLE TABLETS PO ONE (02:10)
[2022-10-23] MEDS ORDERED: ASPIRIN 81 MG CHEWABLE TABLETS ONE (02:14)
[2022-10-23] MEDS ORDERED: PANTOPRAZOLE SODIUM 40 MG VIAL IVPUSH ONE (02:31)
[2022-10-23] MEDS ORDERED: ACETAMINOPHEN 1000 MG/100 ML BAG IVPB ONE (02:31)
[2022-10-23] MEDS ORDERED: PANTOPRAZOLE SODIUM 40 MG/100 ML BAG IVPB ONE (03:16)
[2022-10-23] MEDS ORDERED: ACETAMINOPHEN INJECTION 100 ML IVPB ONE (03:16)
[2022-10-23] MEDS ORDERED: ACETAMINOPHEN 1000 MG/100 ML BAG IVPB PRN (03:50)
[2022-10-23] MEDS: ENOXAPARIN NA (PORCINE) 60 MG/0.6 ML DISP.SYRIN SQ SCH ×2 (05:53→18:15)
[2022-10-23] MEDS: DOCUSATE SODIUM 100 MG CAPSULE (FP) PO SCH ×3 (05:53→22:21)
[2022-10-23] MEDS ORDERED: methaDONE HCL 40 MG DISPERSABLE TABLET PO SCH ×2 (06:00)
[2022-10-23 07:22] LABS: COCAINE, UR NEGATIVE (NEGATIVE); OPIATES, URI NEGATIVE (NEGATIVE)
[2022-10-23 07:23] LABS: METHADONE, UR NEGATIVE (NEGATIVE); PHENCYCLIDINE,URINE NEGATIVE (NEGATIVE); URINE AMPHETAMINES NEGATIVE (NEGATIVE); URINE BARBITURATES NEGATIVE (NEGATIVE)
[2022-10-23 07:27] LABS: URINE BENZODIAZEPINES NEGATIVE (NEGATIVE)
[2022-10-23 07:39] LABS: HEMATOCRIT 35.1 % (32.4-45.2); HEMOGLOBIN 11.8 GM/dL (10.7-15.3); MCH 27.2 pg (25.7-33.7); MCHC 33.5 g/dl (32.0-36.0); MEAN CELL VOLUME 81.1 fl (80-96); MEAN PLT VOLUME 8.5 fl (7.5-11.1); PLATELET COUNT 218 10^3/uL (134-434); RBC 4.33 M/mm3 (3.60-5.2); RDW 13.8 % (11.6-15.6); WHITE BLOOD COUNT 7.5 K/mm3 (4.0-10.0)
[2022-10-23 08:19] LABS: POTASSIUM 3.9 mmol/L (3.5-5.1)
[2022-10-23 08:24] LABS: BLOOD UREA NITROGEN 14.3 mg/dL (7-18); CALCIUM 8.9 mg/dL (8.5-10.1)
[2022-10-23 08:25] LABS: ALBUMIN 3.5 g/dl (3.4-5.0)
[2022-10-23 08:27] LABS: CREATININE 0.7 mg/dL (0.55-1.3)
[2022-10-23 08:28] LABS: BILIRUBIN,TOTAL 0.5 mg/dL (0.2-1); TOT PROT 6.8 g/dl (6.4-8.2)
[2022-10-23] MEDS ORDERED: POLYETHYLENE GLYCOL (HEALTHYLAX) 3350 17 GM PACKET PO SCH (10:00)
[2022-10-23] MEDS: SENNOSIDES 8.6MG TABLET (FP) PO SCH ×2 (10:05→22:21)
[2022-10-23] MEDS: LISINOPRIL 20 MG TABLET PO SCH (10:05)
[2022-10-23] MEDS: PARoxetine HCL 10 MG TABLET PO SCH (10:06)
[2022-10-23] MEDS: amLODIPine BESYLATE 10 MG TABLET (FP) PO SCH (10:06)
[2022-10-23] MEDS: ASPIRIN 81 MG CHEWABLE TABLETS PO SCH (10:06)
[2022-10-23] MEDS: POLYETHYLENE GLYCOL (HEALTHYLAX) 3350 17 GM PACKET PO SCH ×2 (15:07→22:21)
[2022-10-23] MEDS: RIFAXIMIN 550 MG TABLET PO SCH ×2 (15:08→22:21)
[2022-10-23] MEDS: SODIUM CHLORIDE NASAL SPRAY 44 ML BOTTLE NS PRN (18:15)
[2022-10-23] MEDS: MONTELUKAST NA 10 MG TABLET PO SCH (22:21)
[2022-10-24] MEDS: ENOXAPARIN NA (PORCINE) 60 MG/0.6 ML DISP.SYRIN SQ SCH (06:42)
[2022-10-24] MEDS: DOCUSATE SODIUM 100 MG CAPSULE (FP) PO SCH ×3 (07:12→21:07)
[2022-10-24] MEDS: POLYETHYLENE GLYCOL (HEALTHYLAX) 3350 17 GM PACKET PO SCH ×3 (07:14→21:08)
[2022-10-24] MEDS: RIFAXIMIN 550 MG TABLET PO SCH ×3 (07:14→21:07)
[2022-10-24] MEDS ORDERED: ONDANSETRON 4 MG/2 ML VIAL IVPB PRN (08:02)
[2022-10-24] MEDS: ASPIRIN 81 MG CHEWABLE TABLETS PO SCH (09:02)
[2022-10-24] MEDS: amLODIPine BESYLATE 10 MG TABLET (FP) PO SCH (09:02)
[2022-10-24] MEDS: LISINOPRIL 20 MG TABLET PO SCH (09:02)
[2022-10-24] MEDS: SENNOSIDES 8.6MG TABLET (FP) PO SCH ×2 (09:02→21:07)
[2022-10-24] MEDS: PARoxetine HCL 10 MG TABLET PO SCH (09:03)
[2022-10-24] MEDS ORDERED: PATIENT'S OWN MEDICATION (NON-FORMULARY) (Plecanatide [Trulance] 3 MG Tablet) PO SCH (10:00)
[2022-10-24] MEDS: ONDANSETRON 4 MG/2 ML VIAL IVPUSH PRN (11:48)
[2022-10-24] MEDS: PATIENT'S OWN MEDICATION (NON-FORMULARY) (Lipase/Protease/Amylase [Zenpep Dr 40,000 Unit C PO SCH ×2 (13:32→13:33)
[2022-10-24] MEDS: PATIENT'S OWN MEDICATION (NON-FORMULARY) (Azelastine Hcl [Azelastine Hcl] 137 MCG/0.137 ML NS SCH ×2 (16:25→16:26)
[2022-10-24] MEDS: LIPASE/PROTEASE/AMYLASE 36,000 UNIT CAPSULE PO SCH (17:39)
[2022-10-24] MEDS ORDERED: ACETAMINOPHEN 1000 MG/100 ML BAG IVPB PRN (20:32)
[2022-10-24] MEDS: MONTELUKAST NA 10 MG TABLET PO SCH (21:07)
[2022-10-25] MEDS: ONDANSETRON 4 MG/2 ML VIAL IVPUSH PRN ×2 (06:15→14:21)
[2022-10-25] MEDS: RIFAXIMIN 550 MG TABLET PO SCH (06:22)
[2022-10-25] MEDS: POLYETHYLENE GLYCOL (HEALTHYLAX) 3350 17 GM PACKET PO SCH ×3 (06:23→21:02)
[2022-10-25] MEDS: DOCUSATE SODIUM 100 MG CAPSULE (FP) PO SCH ×3 (07:15→21:01)
[2022-10-25] MEDS: LIPASE/PROTEASE/AMYLASE 36,000 UNIT CAPSULE PO SCH ×5 (08:06→17:29)
[2022-10-25] MEDS: SENNOSIDES 8.6MG TABLET (FP) PO SCH ×2 (09:07→21:03)
[2022-10-25] MEDS: ASPIRIN 81 MG CHEWABLE TABLETS PO SCH (09:07)
[2022-10-25] MEDS: LISINOPRIL 20 MG TABLET PO SCH (09:07)
[2022-10-25] MEDS: amLODIPine BESYLATE 10 MG TABLET (FP) PO SCH (09:07)
[2022-10-25] MEDS: PANTOPRAZOLE 40 MG TABLET PO SCH (09:07)
[2022-10-25] MEDS: PARoxetine HCL 10 MG TABLET PO SCH (09:08)
[2022-10-25 11:14] LABS: BASO % 0.7 % (0-2.0); EOS % 0.1 % (0-4.5); HEMATOCRIT 39.5 % (32.4-45.2); HEMOGLOBIN 12.8 GM/dL (10.7-15.3); LYMPH % 24.6 % (8-40); MCH 26.9 pg (25.7-33.7); MCHC 32.4 g/dl (32.0-36.0); MEAN PLT VOLUME 8.9 fl (7.5-11.1); MONO % 8.1 % (3.8-10.2); NEUT % 66.5 % (42.8-82.8); PLATELET COUNT 235 10^3/uL (134-434); RBC 4.76 M/mm3 (3.60-5.2); RDW 13.2 % (11.6-15.6); WHITE BLOOD COUNT 7.4 K/mm3 (4.0-10.0)
[2022-10-25 11:36] LABS: CHLORIDE 102 mmol/L (98-107); POTASSIUM 4.3 mmol/L (3.5-5.1); SODIUM 138 mmol/L (136-145)
[2022-10-25 11:39] LABS: ALBUMIN 4.1 g/dl (3.4-5.0); ANION GAP 8 MMOL/L (8-16); BLOOD UREA NITROGEN 15.4 mg/dL (7-18); CALCIUM 9.6 mg/dL (8.5-10.1); CO2 28 mmol/L (21-32); GLUCOSE,RANDOM 122 mg/dL (74-106); LIPASE 100 U/L (73-393)
[2022-10-25 11:42] LABS: CREATININE 0.8 mg/dL (0.55-1.3); SGOT/AST 33 U/L (15-37); SGPT/ALT 30 U/L (13-61)
[2022-10-25 11:44] LABS: BILIRUBIN,TOTAL 0.6 mg/dL (0.2-1)
[2022-10-25 11:45] LABS: ALK PHOS 75 U/L (45-117)
[2022-10-25] MEDS ORDERED: LORazepam 2 MG/ML SDV VIAL IVPUSH ONE ×2 (12:50→14:45)
[2022-10-25] MEDS: MONTELUKAST NA 10 MG TABLET PO SCH (21:03)
[2022-10-26] MEDS: ONDANSETRON 4 MG/2 ML VIAL IVPUSH PRN ×2 (04:39→18:04)
[2022-10-26] MEDS: DOCUSATE SODIUM 100 MG CAPSULE (FP) PO SCH ×3 (06:35→21:04)
[2022-10-26] MEDS: POLYETHYLENE GLYCOL (HEALTHYLAX) 3350 17 GM PACKET PO SCH ×3 (06:36→21:03)
[2022-10-26] MEDS: LIPASE/PROTEASE/AMYLASE 36,000 UNIT CAPSULE PO SCH ×3 (08:13→16:52)
[2022-10-26] MEDS: amLODIPine BESYLATE 10 MG TABLET (FP) PO SCH (09:30)
[2022-10-26] MEDS: ASPIRIN 81 MG CHEWABLE TABLETS PO SCH (09:30)
[2022-10-26] MEDS: LISINOPRIL 20 MG TABLET PO SCH (09:31)
[2022-10-26] MEDS: PARoxetine HCL 10 MG TABLET PO SCH (09:31)
[2022-10-26] MEDS: PANTOPRAZOLE 40 MG TABLET PO SCH (09:32)
[2022-10-26] MEDS: SENNOSIDES 8.6MG TABLET (FP) PO SCH ×2 (09:33→21:04)
[2022-10-26] MEDS: SODIUM CHLORIDE NASAL SPRAY 44 ML BOTTLE NS PRN (09:37)
[2022-10-26] MEDS ORDERED: ACETAMINOPHEN 1000 MG/100 ML BAG IVPB ONE (10:00)
[2022-10-26] MEDS: CEFTRIAXONE 1 GM in DEXTROSE 5%-WATER - 50 ML IVPB SCH (12:41)
[2022-10-26] MEDS: NYSTATIN 500,000 UNITS/5 ML SUSPENSION PO SCH ×2 (13:53→18:01)
[2022-10-26] MEDS: SIMETHICONE 80 MG TAB.CHEW (FP) PO PRN (21:03)
[2022-10-26] MEDS: MONTELUKAST NA 10 MG TABLET PO SCH (21:04)
[2022-10-27] MEDS: NYSTATIN 500,000 UNITS/5 ML SUSPENSION PO SCH ×5 (01:13→23:46)
[2022-10-27] MEDS: POLYETHYLENE GLYCOL (HEALTHYLAX) 3350 17 GM PACKET PO SCH ×3 (06:05→21:52)
[2022-10-27] MEDS: DOCUSATE SODIUM 100 MG CAPSULE (FP) PO SCH ×3 (06:06→21:51)
[2022-10-27] MEDS ORDERED: ACETAMINOPHEN 1000 MG/100 ML BAG IVPB ONE (06:27)
[2022-10-27] MEDS: LIPASE/PROTEASE/AMYLASE 36,000 UNIT CAPSULE PO SCH ×3 (08:59→17:14)
[2022-10-27] MEDS: LISINOPRIL 20 MG TABLET PO SCH (09:05)
[2022-10-27] MEDS: amLODIPine BESYLATE 10 MG TABLET (FP) PO SCH (09:05)
[2022-10-27] MEDS: SENNOSIDES 8.6MG TABLET (FP) PO SCH ×2 (09:05→21:51)
[2022-10-27] MEDS: PANTOPRAZOLE 40 MG TABLET PO SCH (09:05)
[2022-10-27] MEDS: ASPIRIN 81 MG CHEWABLE TABLETS PO SCH (09:05)
[2022-10-27] MEDS: CEFTRIAXONE 1 GM in DEXTROSE 5%-WATER - 50 ML IVPB SCH (09:06)
[2022-10-27] MEDS: PARoxetine HCL 10 MG TABLET PO SCH (09:06)
[2022-10-27] MEDS ORDERED: ACETAMINOPHEN 325 MG TABLET (FP) PO PRN (16:18)
[2022-10-27] MEDS: MONTELUKAST NA 10 MG TABLET PO SCH (21:52)
[2022-10-28] MEDS: ONDANSETRON 4 MG/2 ML VIAL IVPUSH PRN (05:06)
[2022-10-28] MEDS: NYSTATIN 500,000 UNITS/5 ML SUSPENSION PO SCH ×3 (06:32→17:51)
[2022-10-28] MEDS: DOCUSATE SODIUM 100 MG CAPSULE (FP) PO SCH ×3 (06:36→21:04)
[2022-10-28] MEDS: POLYETHYLENE GLYCOL (HEALTHYLAX) 3350 17 GM PACKET PO SCH ×3 (08:11→21:05)
[2022-10-28] MEDS: amLODIPine BESYLATE 10 MG TABLET (FP) PO SCH (09:01)
[2022-10-28] MEDS: LIPASE/PROTEASE/AMYLASE 36,000 UNIT CAPSULE PO SCH ×3 (09:01→17:19)
[2022-10-28] MEDS: ASPIRIN 81 MG CHEWABLE TABLETS PO SCH (09:01)
[2022-10-28] MEDS: LISINOPRIL 20 MG TABLET PO SCH (09:02)
[2022-10-28] MEDS: SENNOSIDES 8.6MG TABLET (FP) PO SCH ×2 (09:02→21:05)
[2022-10-28] MEDS: PARoxetine HCL 10 MG TABLET PO SCH (09:02)
[2022-10-28] MEDS: PANTOPRAZOLE 40 MG TABLET PO SCH (09:02)
[2022-10-28 12:19] LABS: BASO % 0.5 % (0-2.0); EOS % 0.6 % (0-4.5); HEMATOCRIT 39.6 % (32.4-45.2); HEMOGLOBIN 12.7 GM/dL (10.7-15.3); LYMPH % 31.1 % (8-40); MCH 26.6 pg (25.7-33.7); MCHC 32.1 g/dl (32.0-36.0); MEAN CELL VOLUME 82.8 fl (80-96); MEAN PLT VOLUME 8.9 fl (7.5-11.1); MONO % 9.1 % (3.8-10.2); NEUT % 58.7 % (42.8-82.8); PLATELET COUNT 200 10^3/uL (134-434); RBC 4.79 M/mm3 (3.60-5.2); RDW 13.4 % (11.6-15.6); WHITE BLOOD COUNT 5.9 K/mm3 (4.0-10.0)
[2022-10-28 12:33] LABS: POTASSIUM 4.4 mmol/L (3.5-5.1)
[2022-10-28 12:35] LABS: ALBUMIN 3.8 g/dl (3.4-5.0); BLOOD UREA NITROGEN 12.1 mg/dL (7-18); CALCIUM 9.1 mg/dL (8.5-10.1)
[2022-10-28 12:38] LABS: CREATININE 0.8 mg/dL (0.55-1.3)
[2022-10-28 12:40] LABS: BILIRUBIN,TOTAL 0.3 mg/dL (0.2-1); TOT PROT 7.4 g/dl (6.4-8.2)
[2022-10-28] MEDS: SIMETHICONE 80 MG TAB.CHEW (FP) PO PRN ×2 (17:19→21:05)
[2022-10-28] MEDS: MONTELUKAST NA 10 MG TABLET PO SCH (21:05)
[2022-10-29] MEDS: NYSTATIN 500,000 UNITS/5 ML SUSPENSION PO SCH ×3 (01:20→11:57)
[2022-10-29] MEDS: DOCUSATE SODIUM 100 MG CAPSULE (FP) PO SCH (05:11)
[2022-10-29] MEDS: ONDANSETRON 4 MG/2 ML VIAL IVPUSH PRN (05:12)
[2022-10-29 06:14] VITALS: RESP 18; TEMP 98.7
[2022-10-29] MEDS: POLYETHYLENE GLYCOL (HEALTHYLAX) 3350 17 GM PACKET PO SCH (06:37)
[2022-10-29] MEDS: LIPASE/PROTEASE/AMYLASE 36,000 UNIT CAPSULE PO SCH ×2 (09:00→11:57)
[2022-10-29] MEDS: SENNOSIDES 8.6MG TABLET (FP) PO SCH (09:00)
[2022-10-29] MEDS: ASPIRIN 81 MG CHEWABLE TABLETS PO SCH (09:01)
[2022-10-29] MEDS: PANTOPRAZOLE 40 MG TABLET PO SCH (09:01)
[2022-10-29] MEDS: amLODIPine BESYLATE 10 MG TABLET (FP) PO SCH (09:01)
[2022-10-29] MEDS: LISINOPRIL 20 MG TABLET PO SCH (09:01)
[2022-10-29] MEDS: PARoxetine HCL 10 MG TABLET PO SCH (09:02)
[2022-10-29 09:04] VITALS: BP 154/92; PULSE 68
== END 2022-10-29 13:34 | disposition home or self-care (01) | DRG 392 ==
LOC: JER 20:22 → JERBED 10-23 02:28 → J4S 10-23 04:25
PROVIDERS: ADMIT Internal Medicine; ATTEND Family Medicine
DX: K57.92 Diverticulitis of intestine, part unspecified, without perforation or abscess without bleeding (principal); F11.20 Opioid dependence, uncomplicated; I24.8 Other forms of acute ischemic heart disease; K58.9 Irritable bowel syndrome, unspecified; F12.90 Cannabis use, unspecified, uncomplicated; R10.84 Generalized abdominal pain; I10 Essential (primary) hypertension; E78.5 Hyperlipidemia, unspecified; Z88.1 Allergy status to other antibiotic agents; K21.9 Gastro-esophageal reflux disease without esophagitis
CPT/HCPCS: 36415; 74174-TC; 74177-TC; 80053; 80307; 81003; 82962; 83605; 83690; 83735; 84484; 85025; 85027; 85610; 85730; 86140; 86850; 86900; 86901; 87086; 93005; 93010; 93306-TC; 99285-25; Q9967

== ENCOUNTER 2025-02-08 17:53 | Emergency (ER) | payer OTHER ==
[2025-02-08 17:58] VITALS: TEMP 98.1; BMI 27.8
[2025-02-08] MEDS ORDERED: LIDOCAINE 4% PATCH TP ONE (19:34)
[2025-02-08] MEDS ORDERED: ACETAMINOPHEN INJECTION 100 ML ONE (19:34)
[2025-02-08] MEDS: ACETAMINOPHEN 1000 MG/100 ML BAG IVPB ONE (19:47)
[2025-02-08] MEDS: LIDOCAINE 4% PATCH TP ONE (19:48)
[2025-02-08 19:53] LABS: ABSOLUTE IMMATURE GRANULOCYTES 0.01 x10^3/uL (0.0-0.031); BASOPHILS # 0.03 x10^3/uL (0.01-0.08); EOSINOPHIL % 2.8 % (0.7-5.8); EOSINOPHILS # 0.17 x10^3/uL (0.04-0.36); MCHC 31.6 g/dl (32.2-35.5); MEAN CELL VOLUME 84.6 fl (79.4-94.8); MEAN PLT VOLUME 10.0 fl (9.4-12.3); MONOCYTE # 0.57 x10^3/uL (0.24-0.86); MONOCYTE % 9.4 % (4.7-12.5); RDW 13.0 % (12.4-16.4)
[2025-02-08 20:07] LABS: GLUCOSE,RANDOM 76.0 mg/dL (74-106); TOT PROT 7.7 g/dl (6.4-8.2)
[2025-02-08 20:08] LABS: CO2 27.0 mmol/L (21-32)
[2025-02-08 20:10] LABS: ALK PHOS 64.0 U/L (40-150)
[2025-02-08 20:12] LABS: SGOT/AST 34.0 U/L (5-34); SGPT/ALT 22.0 U/L (0-55)
[2025-02-08 20:26] LABS: URINE APPEARANCE CLEAR; URINE COLOR YELLOW
[2025-02-08 20:27] LABS: URINE BILIRUBIN NEGATIVE (NEGATIVE); URINE GLUCOSE (UA) NEGATIVE (NEGATIVE); URINE KETONE NEGATIVE (NEGATIVE)
[2025-02-08 20:28] LABS: URINE LEUK ESTERASE 1+ (NEGATIVE); URINE NITRITE NEGATIVE (NEGATIVE); URINE PROTEIN NEGATIVE (NEGATIVE); URINE UROBILINOGEN 1.0 mg/dL (0.2-1.0)
[2025-02-08 21:05] LABS: CREATININE 0.92 mg/dL (0.55-1.3)
[2025-02-08 21:21] LABS: HCV DIAGNOSTIC IN-HOUSE W/RFLX NON-REACTIVE (NONREACTIVE)
[2025-02-08 21:34] LABS: HIV INTERPRETATION NEGATIVE (NEGATIVE)
[2025-02-08 23:05] VITALS: BP 120/82; PULSE 59; RESP 19
[2025-02-09] MEDS ORDERED: LIDOCAINE PATCH REMOVAL MC SCH (07:00)
== END 2025-02-08 23:52 | disposition home or self-care (01) ==
LOC: JER 17:53
PROC: 3E033NZ Introduction of Analgesics, Hypnotics, Sedatives into Peripheral Vein, Percutaneous Approach (ICD-10-PCS; principal; 2025-02-08)
DX: M54.50 Low back pain, unspecified (principal); M48.061 Spinal stenosis, lumbar region without neurogenic claudication; R30.0 Dysuria
CPT/HCPCS: 36415; 72131-TC; 74176-TC; 80053; 81003; 85025; 86803; 87086; 87389; 96374; 99285-25